=== PATIENT | female | born 1980 | race Caucasian/White ===

== ENCOUNTER → 2021-01-04 | Outpatient (CLI) | payer OTHER ==
[~2021-01-04] MED LIST: AUGMENTIN 875-1 EACH PO; CENTANY30 GM TP; DEPO-PROVER150 MG/M1 IM; IBUPROFEN 800800 MG PO; ROBAXIN 750 MG750 MG PO; TRAMADOL 50 MG50 MG PO
== END ==
LOC: M.LAB 15:31
PROVIDERS: ATTEND Surgery
DX: K82.8 Other specified diseases of gallbladder (principal)